=== PATIENT | male | born 1940 | race Caucasian/White ===

== ENCOUNTER 2021-05-03 16:04 | Emergency (ER) | payer OTHER, SELFPAY ==
[2021-05-03] VITALS (7 sets, daily range): BP systolic 131–165; BP diastolic 60–91; PULSE 78–88; RESP 13–18; TEMP 37.2; O2SAT 95–97
--- NOTE | 2021-05-03 17:00 | DI.CT_ITS ---
Exam(s) CT THORACIC LUMBAR SPINE WO EXAM: CT THORACIC LUMBAR SPINE WO CLINICAL HISTORY: Fall, low back pain. TECHNIQUE: Imaging Protocol: Axial computed tomography images with coronal and sagittal reformatted images were created and reviewed. CONTRAST MATERIAL: None COMPARISON: No exams were available for comparison FINDINGS: THORACIC SPINAL COLUMN: There is no evidence of compression for fracture nor other type of fractures in the thoracic spine. There is a gradual kyphosis without associated wedge compression fractures. There is no evidence of acute compromise of the spinal canal. No facet malalignment. No significant osseous lesions. Multilevel anterior osseous lipping. LUMBAR SPINAL COLUMN: There is no evidence of fracture in the lumbosacral spine nor in visualized sac rum. Sacroiliac joints appear age-appropriate. There is moderate disc space narrowing throughout the lumbosacral spine and advanced disc space narro wing at L4-5 and L5-S1 levels. Large bridging osteophytes are noted at L5-S1. There is no evidence of listhesis. No prominent scoliosis. No osseous lesions. OTHER: Visualized abdominal aorta is calcified as are the common iliac arteries.. Common iliac arter ies both exhibit diameter is 1.7 cm which is somewhat increased. However, this is related to general ized arterial megaly and there is no discrete aneurysm in these vessels evident. Also noted it is a cyst in the right kidney which exhibits diameter 5.2 cm. This is in mid-upper donald e region the right kidney. IMPRESSION: No evidence of fracture in the thoracic and lumbar spines. Multilevel degenerative disc disease. RADIATION DOSE DELIVERED: Total DLP DATA REPOSITORY: All CT scans at this facility are submitted to the National Radiology Data Registry (NRDR) Dose Index Registry (DIR) with the [employer] ([employer]). RADIATION OPTIMIZATION: All CT scans at this facility use at least one of these dose optimization te chniques: automated exposure control; mA and/or kV adjustment per patient size (includes targeted exa ms where dose is matched to clinical indication); or iterative reconstruction.
--- NOTE | 2021-05-03 17:00 | RT.EKG_ITS ---
APPROVED REPORT Exam: Resting ECG Reason for Exam: Fall, Confusion Patient Location: E HR:83 bpm ECG Measurements Heart Rate 83 AXIS WV 238 P 9 QRSd 108 QRS 87 QT 389 T -11 QTc 458 Conclusion Sinus rhythm...normal P axis, V-rate 60- 99 Prolonged WV interval...WV >220, V-rate 50- 90 Inferior infarct, age indeterminate...Q>35mS, T neg, II III aVF I have reviewed and interpreted ECG and agree with software generated interpretation.
--- NOTE | 2021-05-03 17:00 | DI.CT_ITS ---
Exam(s) CT HEAD CERVICAL SPINE WO EXAM: CT HEAD CERVICAL SPINE WO CLINICAL HISTORY: Fall, Confusion. TECHNIQUE: Imaging Protocol: Axial computed tomography images with coronal and sagittal reformatted images were created and reviewed COMPARISON: No exams were available for comparison FINDINGS: BRAIN: Calcifications noted in both vertebral arteries at the skull base. Also calcification within the int racavernous internal carotid arteries. There are no skull fractures nor fluid in the visualized paranasal sinuses. There is no intra-axial hemorrhage but there is extra ax blood along the falx cerebri consistent with element of subdural hemorrhage at this level. There is no epidural nor subdural hematoma evident ov er the convexities. No blood within the ventricular system. There is abundant bilateral periventricular hypodensity consistent with chronic small vessel changes. No obvious acute infarct. Symmetrical atrophy noted. Size of the ventricles may be slightly large r in size of the overlying cortical sulci. CERVICAL SPINE: There is no evidence of fracture nor listhesis. No significant prevertebral soft tissue swelling. There is multilevel disc space narrowing C5-6, C6-7, and C7-T1. Luschka joint osteophytes bilaterall y at these levels. There is no listhesis. No prominent facet arthropathy. No osseous lesions. IMPRESSION: There is subdural hematoma along both sides of the falx cerebrum. No shift of midline structures. N o evidence of epidural or subdural hematoma over the convexities. No intra-axial hemorrhage. Although there is symmetrical atrophy I note that the size of the ventricles appears slightly out of proportion when compared to the size of the overlying cortical sulci. If there is clinical triad of dementia, gait disturbance, and in continence than 1 might consider the possibility of normal pressur e hydrocephalus here. No evidence of cervical spine fracture, malalignment, nor acute compromise of the cervical spinal can al. RADIATION DOSE DELIVERED: Total DLP DATA REPOSITORY: All CT scans at this facility are submitted to the National Radiology Data Registry (NRDR) Dose Index Registry (DIR) with the [employer] (ACR). RADIATION OPTIMIZATION: All CT scans at this facility use at least one of these dose optimization te chniques: automated exposure control; mA and/or kV adjustment per patient size (includes targeted exa ms where dose is matched to clinical indication); or iterative reconstruction.
--- NOTE | 2021-05-03 17:05 | ED.GENADUL_ITS ---
Discharge Plan Disposition Patient Disposition: [facility] Condition: Stable Discharge Details Clinical Impression: Acute subdural hematoma Primary Care Provider: Monica,Local ED Provider: Kelly Templeton Home Meds and New Rx's Prescriptions: No Action rivastigmine tartrate 1.5 mg Capsule 1.5 mg PO BID RF: 0 metformin 1,000 mg Tablet 1,000 mg PO BID RF: 0 terazosin 2 mg Tablet 2 mg PO QHS RF: 0 triamterene-hydrochlorothiazid 75-50 mg Tablet 1 tab PO DAILY RF: 0 Multi Minerals Tablet PO RF: 0 finasteride 5 mg Tablet 5 mg PO DAILY RF: 0 rosuvastatin 20 mg Tablet 20 mg PO DAILY RF: 0 levothyroxine 125 mcg Capsule 125 mcg PO DAILY RF: 0 calcium 600 mg Capsule PO RF: 0 ascorbic acid (vitamin C) [Vitamin C] 500 mg Tablet RF: 0 aspirin 81 mg Tablet 81 mg PO DAILY RF: 0 omega 9-xdq-mwu-fish oil [Fish Oil] 1,200 (144-216) mg Capsule RF: 0 Glucosamine Chondroitin 550-30-1 mg Capsule PO RF: 0 Discharge Data Discharge Date/Time-TO BE ENTERED AT DEPARTURE: 05/03/21 22:15 Medical Decision Making 81-year-old male with a history of dementia, triple bypass, hypertension presents to the ER with chief complaint of mechanical fall. Patient is pleasantly confused. He denies any chest pain abdominal pain headache or loss of consciousness. No hematoma or obvious deformity noted on his initial exam. Patient does take aspirin daily, Metformin, rosuvastatin. He is not on any other blood thinners besides aspirin. Patient is a poor historian history is limited. Patient is complaining of some lower back pain and is unable to get himself up out of the wheelchair. 1725: Spoke with Patients Daughter Cristal who reports 2 days ago he was A&O , he fell x 2 today at 1430 from chair and then from standing. Does have difficulty standing at baseline. Daughter is concerned because he couldn't take a step, she states yesterday he was at baseline. PMHX includes Triple Bypass, Dementia, HTN, Incontinence Patient has a superficial abrasion to left elbow. He had reported right arm pain yesterday. Work-up ordered to rule out CVA versus CAD versus trauma. 2021: Spoke with [facility] Radiologist Gudstein, Small Falcine Subdural Hematoma. Neuro rechecked no focal neuro deficits noted patient is still pleasantly confused. Moves all 4 extremities follows instructions NIH scale negative. He is complaining of a slight headache to his frontal lobe. At this time I will reach out to his daughter. Images pushed to [facility] of head CT, CT T and L- spine chest x-ray and EKG per Imaging protocol: Computed tomography of the head without contrast. COMPARISON: No relevant prior studies available. FINDINGS: Brain: There is increased attenuation and mild thickening involving the anterior, convexity and posterior falx. It measures up to 3 mm and is most prominent anteriorly. Cerebral volume loss noted. Scattered areas of decreased attenuation in the deep periventricular white matter consistent with small vessel ischemic change. No evidence for acute intracranial hemorrhage. Cerebral ventricles: No ventriculomegaly. Paranasal sinuses: Mild mucoperiosteal thickening right inferior maxillary sinus. Mastoid air cells: Visualized mastoid air cells are well aerated. Bones/joints: Unremarkable. No acute fracture. Soft tissues: Unremarkable. IMPRESSION: 1. Falcine subdural hematoma. 2. Senescent changes noted. FINDINGS: Bones/joints: No acute fracture. Normal alignment. Discs/Spinal canal/Neural foramina: No significant disc protrusion. No severe spinal canal stenosis. No significant neural foraminal narrowing. Lungs: Lung apices are normal. Vasculature: Bilateral calcified carotid plaque. Soft tissues: Unremarkable. IMPRESSION: No evidence for acute posttraumatic abnormality. 2048: Spoke with [facility] [place] [place] transfer center regarding transfer request and neuro consult. 2106: Spoke with ED DrJose Lemos regarding patient case and details she recommends chest x-ray pelvis x-ray and Keppra IV. Will plan for ED to ED transfer for trauma eval and further care. 2203: EMS here plan for transfer out. HPI General Mode of arrival: wheelchair . Date/Time Provider Initiated Documentation: 05/03/21 16:52 . Limitations to Documentation: altered mental status . Information obtained by: patient, family and RN notes reviewed . HPI Narrative: 81-year-old male with a history of dementia, triple bypass, hypertension presents to the ER with chief complaint of mechanical fall. Patient is pleasantly confused. He denies any chest pain abdominal pain headache or loss of consciousness. No hematoma or obvious deformity noted on his initial exam. Patient does take aspirin daily, Metformin, rosuvastatin. He is not on any other blood thinners besides aspirin. Patient is a poor historian history is limited. Patient is complaining of some lower back pain and is unable to get himself up out of the wheelchair. Related Data Home Medications Medication Instructions Recorded Confirmed ascorbic acid (vitamin C) [Vitamin 05/03/21 C] aspirin 81 mg PO DAILY 05/03/21 05/03/21 calcium mg PO 05/03/21 finasteride 5 mg PO DAILY 05/03/21 05/03/21 glucos sul [id number]-C-Mn cap PO 05/03/21 [Glucosamine Chondroitin] levothyroxine 125 mcg PO DAILY 05/03/21 05/03/21 metformin 1,000 mg PO BID 05/03/21 05/03/21 minerals [Multi Minerals] tab PO 05/03/21 omega 4-zoe-kia-fish oil [Fish Oil] cap 05/03/21 rivastigmine tartrate 1.5 mg PO BID 05/03/21 05/03/21 rosuvastatin 20 mg PO DAILY 05/03/21 05/03/21 terazosin 2 mg PO QHS 05/03/21 05/03/21 triamterene-hydrochlorothiazid 1 tab PO DAILY 05/03/21 05/03/21 Allergies Allergy/AdvReac Type Severity Reaction Status Date / Time No Known Allergies Allergy Unverified 05/03/21 19:43 General Stated Complaint: [facility] STEPHANIE: 3 Review of Systems Unobtainable due to mental condition and Unobtainable due to mental status (History obtained by daughter) [facility] Social History Smoking/Tobacco Use Status: Former Tobacco Use Smoking risk assessment performed?: Yes Alcohol Intake: never Drug use: Never Substance use type: does not use Exam Narrative Exam Narrative: General: Well Developed, Awake and Alert, conversant. Is confused unable to stand up out of the wheelchair which daughter reports is at baseline. Skin: Warm and Dry HEENT: Head: No palpable deformities, Normocephalic Eyes: Pupils PERRLA, EOM's intact. No periorbital eccymosis or step off Ears: Canal patent. Tympanic membranes are clear . No bonner's sign, no hemptympanum. Nose/Face: Atraumatic. Facial bones nontender to palpation and stable with manipulation. Mouth/Throat: No intraoral trauma. Teeth and mandible are intact. Neck: No midline tenderness, no step off, no deformity to palpation of C-spine. Trachea midline. Spine: No T or L-spine tenderness, crepitus, step-off or deformity with palpation. Chest: No surface trauma. Nontender without crepitus or deformity. Lungs clear to ausculatation bilaterally. Heart: RRR, no rubs, murmurs or gallop. Abdomen: No abrasions, ecchymosis, or surface trauma. Nondistended. Nontender to palpation no guarding, rebound, or rigidity. Pelvis: Nontender to palpation and stable to compression. Femoral pulses strong and equal Extremities superficial abrasion noted to left elbow, superficial abrasion on a nterior garza, sensation intact. Peripheral pulses intact and equal.h Neuro: ANO x4, GCS 15, cranial nerves II through XII intact. Motor and sensory exam nonfocal. Reflexes are symmetric. Course Vital Signs Vital signs: Vital Signs Temperature 37.2 C 05/03/21 16:17 Pulse 88 05/03/21 16:17 Respiratory Rate 18 05/03/21 16:17 Blood Pressure 131/70 05/03/21 16:17 Pulse Oximetry 95 05/03/21 16:17 Temperature 37.2 C 05/03/21 16:17 Temperature Source Temporal Artery Scan 05/03/21 16:17 Pulse 88 05/03/21 16:17 Respiratory Rate 18 05/03/21 16:17 Blood Pressure 131/70 05/03/21 16:17 Blood Pressure Position Sitting 05/03/21 16:17 Pulse Oximetry 95 05/03/21 16:17 Oxygen Delivery Method Room Air 05/03/21 16:17 Oxygen Flow Rate 0 05/03/21 16:17 Pain Level 0 05/03/21 16:17
[2021-05-03 18:50] LABS: Abs Immature Grans 0.02 10^3/uL (0.0-0.06); Absolute Basophil Count 0.04 10^3/uL (0.0-0.2); Absolute Eosinophil Count 0.02 10^3/uL (0.0-0.7); Absolute Lymphocyte Count 0.58 10^3/uL (1.2-3.4); Absolute Monocyte Count 0.74 10^3/uL (0.1-0.8); Absolute Neutrophil Count 7.67 10^3/uL (1.2-6.7); Basophils % 0.4; Eosinophils % 0.2; HCT 39.3 % (40.0-50.0); Immature Grans % 0.2; Lymphocytes % 6.4; MCH 29.8 pg (27.0-33.0); MCHC 33.1 % (32.0-36.0); MCV 90.1 fL (80-95); MPV 11.7 fL (8.0-11.0); Monocytes % 8.2; Neutrophils % 84.6; Nucleated RBC 0 %; Platelet Count 177 10^3/uL (130-400); RBC 4.36 10^6/uL (4.36-5.78); RDW 13.2 % (11.8-14.1); RDW-SD 43.5 fL; WBC 9.07 10^3/uL (4.4-10.8)
[2021-05-03 19:09] LABS: INR 1.1 (0.9-1.1); Prothrombin Time 10.8 sec (9.3-11.0)
[2021-05-03 19:12] LABS: ALT 30 U/L (16-63); AST 17 U/L (15-37); Albumin 3.8 g/dL (3.4-5.0); Alkaline Phosphatase 44 U/L (46-116); Anion Gap 11.6 mmol/L (3-11); BUN 27 mg/dL (7-18); Bilirubin, Total 0.5 mg/dL (0.2-1.0); CO2 26.4 mmol/L (21.0-32.0); CREATININE 1.4 mg/dL (0.70-1.30); Calcium 9.5 mg/dL (8.5-10.1); Chloride 105 mmol/L (98-107); Estimated GFR 48.89 (mL/min/1.73m2); Glucose 115 mg/dL (74-106); Magnesium 1.9 mg/dL (1.8-2.4); NT-proBNP 258 pg/mL (<300); Potassium 3.8 mmol/L (3.5-5.1); Sodium 143 mmol/L (136-145); Total Protein 7.6 g/dL (6.4-8.2); Troponin I < 0.05 ng/mL (<0.06)
--- NOTE | 2021-05-03 19:15 | NUR.NOTE ---
Assumed care of pt. Report from MAYANK Almanzar. Pt reports fall at home, I think I tripped. Denies dizziness, chest pain,. Denies head strike,neck pain. states was stuck between 2 architectural objects. Denies any injury, pain. Alert, oriented, answering questions appropriately.
[2021-05-03 19:46] LABS: Bilirubin Negative (Negative); Blood Negative (Negative); Clarity Clear (Clear); Glucose Negative (Negative); Ketones Negative (Negative); Leukocyte Esterase Negative (Negative); Nitrite Negative (Negative); Specific Gravity 1.015 (1.005-1.025); Urobilinogen 0.2 EU/dL (Up TO 0.2); pH 6.5 (5-8)
[2021-05-03] MEDS: Normal Saline 1,000 ML 250 ML IV (20:06)
--- NOTE | 2021-05-03 20:20 | DI.[facility]_ITS ---
Addendum created by Carla Ferrara MD on 05/03/2021 8:22:34 PM EDT: I discussed case findings with ANITA SARKAR 05/03/2021 8:22 PM EDT. Initial report created on 05/03/2021 8:20:18 PM EDT: PROCEDURE INFORMATION: Exam: CT Head Without Contrast Exam date and time: 05/03/2021 5:05 PM Age: 81 years old Clinical indication: Injury or trauma; Fall; Blunt trauma (contusions or hematomas); Consciousness not specified TECHNIQUE: Imaging protocol: Computed tomography of the head without contrast. COMPARISON: No relevant prior studies available. FINDINGS: Brain: There is increased attenuation and mild thickening involving the anterior, convexity and posterior falx. It measures up to 3 mm and is most prominent anteriorly. Cerebral volume loss noted. Scattered areas of decreased attenuation in the deep periventricular white matter consistent with small vessel ischemic change. No evidence for acute intracranial hemorrhage. Cerebral ventricles: No ventriculomegaly. Paranasal sinuses: Mild mucoperiosteal thickening right inferior maxillary sinus. Mastoid air cells: Visualized mastoid air cells are well aerated. Bones/joints: Unremarkable. No acute fracture. Soft tissues: Unremarkable. IMPRESSION: 1. Falcine subdural hematoma. 2. Senescent changes noted. PROCEDURE INFORMATION: Exam: CT Cervical Spine Without Contrast Exam date and time: 05/03/2021 5:05 PM Age: 81 years old Clinical indication: Injury or trauma; Fall; Blunt trauma (contusions or hematomas); Consciousness not specified TECHNIQUE: Imaging protocol: Computed tomography images of the cervical spine without contrast. COMPARISON: No relevant prior studies available. FINDINGS: Bones/joints: No acute fracture. Normal alignment. Discs/Spinal canal/Neural foramina: No significant disc protrusion. No severe spinal canal stenosis. No significant neural foraminal narrowing. Lungs: Lung apices are normal. Vasculature: Bilateral calcified carotid plaque. Soft tissues: Unremarkable. IMPRESSION: No evidence for acute posttraumatic abnormality. Dictated and Authenticated by: Carla Ferrara MD. Ordering:BLAINE Mendoza MD
--- NOTE | 2021-05-03 20:50 | DI.[facility]_ITS ---
PROCEDURE INFORMATION: Exam: CT Thoracic Spine Without Contrast Exam date and time: 05/03/2021 5:05 PM Age: 81 years old Clinical indication: Low back pain; Pain in thoracic spine TECHNIQUE: Imaging protocol: Computed tomography images of the thoracic spine without contrast. COMPARISON: No relevant prior studies available. FINDINGS: Vertebrae: Normal kyphosis of the thoracic spine without spondylolysis or spondylolisthesis. Preserved vertebral body heights without evidence for acute compression fracture. No fracture of the posterior or lateral elements. Discs/Spinal canal/Neural foramina: Multilevel chronic degenerative changes of disc space narrowing and anterior and lateral osteophytes. Soft tissues: Unremarkable. Lungs: The visualized lung hwang are clear. Heart: Severely calcified coronary arteries with stents. No cardiomegaly. Moderate to severe thoracic aortic calcifications without evidence for aneurysm or dissection. Mediastinum: Small hiatal hernia. IMPRESSION: No acute thoracic spine fracture or malalignment. Chronic multilevel degenerative changes. PROCEDURE INFORMATION: Exam: CT Lumbar Spine Without Contrast Exam date and time: 05/03/2021 5:05 PM Age: 81 years old Clinical indication: Low back pain; Pain in thoracic spine TECHNIQUE: Imaging protocol: Computed tomography images of the lumbar spine without contrast. COMPARISON: No relevant prior studies available. FINDINGS: Vertebrae: Normal lordosis of the lumbar spine with no evidence for spondylolysis or spondylolisthesis. Preserved vertebral body heights. Discs/Spinal canal/Neural foramina: Multilevel degenerative changes with vacuum disc formation at L1-L2, L3-L4 and L4-L5. Broad-based moderate to severe posterior disc bulge with left paracentral extension measuring roughly 7 mm at L3-L4 and [id number]-[id number] left neural foraminal compartment narrowing and moderate canal stenosis. Near complete loss of the L4-L5 disc space with posterior broad-based disc bulge and severe left exiting neural foraminal narrowing. Other bones/joints: No lytic or blastic osseous lesions. Kidneys and ureters: Incidental large right upper pole posterior 4.9 cm simple renal cyst. Stomach and bowel: Focal right rectal wall thickening best seen on series 27, image 83. Recommend sigmoidoscopy for further evaluation. Vasculature: Severe atherosclerotic vascular calcifications along the abdominal aorta and the bilateral iliac arteries without evidence for aneurysm. Soft tissues: Unremarkable. IMPRESSION: 1. Focal right rectal wall thickening best seen on series 27, image 83. Recommend sigmoidoscopy for further evaluation. 2. Severe multilevel degenerative changes in the lower lumbar spine with severe left L4-L5 neural foraminal narrowing. 3. No acute lumbar spine fracture or malalignment. Dictated and Authenticated by: Sandy Isaacs MD. Ordering:BLAINE Mendoza MD
--- NOTE | 2021-05-03 21:00 | DI.RAD_ITS ---
Exam(s) XR PELVIS AP EXAM: XR PELVIS AP CLINICAL HISTORY: Trauma. TECHNIQUE: 2D digital imaging was performed. COMPARISON: No exams were available for comparison FINDINGS: No evidence of pelvic nor obvious hip fracture. Sacroiliac joints appear unremarkable. No osseous l esions. No obvious degenerative changes in the hips. Vascular calcifications noted both femoral art eries. IMPRESSION: DATA REPOSITORY: RADIATION DOSE DELIVERED:
--- NOTE | 2021-05-03 21:00 | DI.RAD_ITS ---
Exam(s) XR CHEST 2V PA LATERAL EXAM: XR CHEST 2V PA LATERAL CLINICAL HISTORY: Trauma. TECHNIQUE: 2D digital imaging was performed. COMPARISON: No exams were available for comparison FINDINGS: Sternotomy wires and evidence of previous CABG. Mild cardiomegaly. Lungs are clear. No infiltrates nor pleural effusions. No pulmonary edema. IMPRESSION: No acute pulmonary findings.Previous sternotomy-CABG DATA REPOSITORY: RADIATION DOSE DELIVERED:
[2021-05-03 21:10] LABS: Troponin I < 0.05 ng/mL (<0.06)
--- NOTE | 2021-05-03 21:44 | DI.[facility]_ITS ---
PROCEDURE INFORMATION: Exam: XR Pelvis Exam date and time: 05/03/2021 9:10 PM Age: 81 years old Clinical indication: Pelvic pain TECHNIQUE: Imaging protocol: XR pelvis. Views: 1 or 2 view. COMPARISON: CT THORACIC LUMBAR SPINE WO 05/03/2021 7:48 PM FINDINGS: Bones/joints: Moderate lower lumbar spondylosis. Joint spaces appear well preserved. Soft tissues: Unremarkable. Vasculature: Vascular calcifications noted. IMPRESSION: No evidence for acute abnormality. Dictated and Authenticated by: Carla Ferrara MD. Ordering:BLAINE Mendoza MD
--- NOTE | 2021-05-03 21:44 | DI.[facility]AD_ITS ---
PROCEDURE INFORMATION: Exam: XR Chest Exam date and time: 05/03/2021 9:10 PM Age: 81 years old Clinical indication: Screening exam; Pre-operative exam; Other: Spinal; Prior surgery TECHNIQUE: Imaging protocol: XR of the chest. Views: 2 views. COMPARISON: CT HEAD CERVICAL SPINE WO 05/03/2021 7:48 PM FINDINGS: Lungs: Unremarkable. No consolidation. Pleural spaces: Unremarkable. No pleural effusion. No pneumothorax. Heart/Mediastinum: Mild cardiomegaly. Bones/joints: Status post median sternotomy. Moderate thoracic spondylosis. IMPRESSION: No evidence for acute abnormality. Dictated and Authenticated by: Carla Ferrara MD. Ordering:BLAINE Mendoza MD
[2021-05-03] MEDS: levETIRAcetam 1,000 MG in Normal Saline 100 ML 400 MG IVPB (21:46)
[2021-05-03 21:53] LABS: Source Nasal/Nares
--- NOTE | 2021-05-03 22:34 | NUR.NOTE ---
attempted to call report to [facility], on hold x 8 min.
--- NOTE | 2021-05-03 22:39 | NUR.NOTE ---
report to Marcella at [facility] [place] [facility] [place]
[2021-05-04 00:02] LABS: COVID-19 PCR Negative (Negative)
== END 2021-05-03 22:15 | disposition short-term general hospital (02) ==
PROVIDERS: Emergency Provider Registered Nurse Emergency; PCP Internal Medicine
DX: S06.5X0A Traumatic subdural hemorrhage without loss of consciousness, initial encounter (principal); W18.39XA Other fall on same level, initial encounter
CPT/HCPCS: 36415; 80053; 87635; 93005; 96361; 96365; 99285; 70450; 71046; 72125; 72128; 72131; 72170; 81003; 83735; 83880; 84484; 85025; 85610; 93010; 99284; J1953